=== PATIENT | male | born 1975 | race Caucasian/White ===

== ENCOUNTER 2017-05-18 21:13 | Emergency (ER) | payer MEDICAID ==
[~2017-05-18] VITALS: Ht 180.3 cm; Wt 115.9 kg
[2017-05-18 21:17] VITALS: BP 133/83; TEMP 98.2
[2017-05-18] MEDS ORDERED: CEPHALEXIN500 M1 PO (21:21)
[2017-05-18] MEDS ORDERED: ZESTORETIC 25 M1 TAB PO (21:21)
[2017-05-18] MEDS ORDERED: DIABETA 5MG5 MG/TAB PO (21:22)
[2017-05-18] MEDS ORDERED: LOPID 600M600 MG/TAB PO (21:22)
[2017-05-18] MEDS ORDERED: GLUCOPHAGE1000 MG PO (21:23)
[2017-05-18 22:13] VITALS: PULSE 94
== END 2017-05-18 22:13 | disposition home or self-care (01) ==
LOC: COL.ER 21:13
DX: L03.312 Cellulitis of back [any part except buttock and flank] (principal); L08.9 Local infection of the skin and subcutaneous tissue, unspecified; I10 Essential (primary) hypertension; E11.9 Type 2 diabetes mellitus without complications; Z79.84 Long term (current) use of oral hypoglycemic drugs

== ENCOUNTER 2017-05-21 18:20 | Emergency (ER) | payer MEDICAID ==
[~2017-05-21] VITALS: Ht 182.9 cm; Wt 115.9 kg
[~2017-05-21 18:20] MED LIST: CEPHALEXIN500 M1 PO; DIABETA 5MG5 MG/TAB PO; GLUCOPHAGE1000 MG PO; LOPID 600M600 MG/TAB PO; ZESTORETIC 25 M1 TAB PO
[2017-05-21 18:22] VITALS: TEMP 98.1
[2017-05-21] MEDS ORDERED: NORCO 325 MG-51 TAB PO (18:27)
[2017-05-21] MEDS ORDERED: DOXYCYCLINE 10100 MG PO (19:26)
[2017-05-21 19:40] VITALS: BP 119/89; PULSE 97
== END 2017-05-21 19:47 | disposition home or self-care (01) ==
LOC: COL.ER 18:20
DX: S20.462A Insect bite (nonvenomous) of left back wall of thorax, initial encounter (principal); E11.9 Type 2 diabetes mellitus without complications; I10 Essential (primary) hypertension; Z79.84 Long term (current) use of oral hypoglycemic drugs; W57.XXXA Bitten or stung by nonvenomous insect and other nonvenomous arthropods, initial encounter

== ENCOUNTER 2017-12-01 09:26 | Emergency (ER) | payer BC, MEDICAID ==
[~2017-12-01] VITALS: Ht 182.9 cm; Wt 113.6 kg
[~2017-12-01 09:26] MED LIST changes: +DOXYCYCLINE 10100 MG PO; +NORCO 325 MG-51 TAB PO
[2017-12-01 09:37] VITALS: BP 136/86; PULSE 99; TEMP 98.3
[2017-12-01] MEDS ORDERED: NORCO 325 MG-7.1 TAB PO (10:37)
== END 2017-12-01 10:43 | disposition home or self-care (01) ==
LOC: COL.ER 09:26
DX: S20.212A Contusion of left front wall of thorax, initial encounter (principal); E11.9 Type 2 diabetes mellitus without complications; I10 Essential (primary) hypertension; Z79.84 Long term (current) use of oral hypoglycemic drugs; W10.9XXA Fall (on) (from) unspecified stairs and steps, initial encounter; W22.8XXA Striking against or struck by other objects, initial encounter; Y92.009 Unspecified place in unspecified non-institutional (private) residence as the place of occurrence of the external cause
CPT/HCPCS: J1885